=== PATIENT | female | born 1940 | race Caucasian/White ===

== ENCOUNTER → 2017-05-31 | Outpatient (CLI) | payer MEDICARE, MEDICAID ==
[~2017-05-31] MED LIST: AMLO5TAB PO; ASPIRIN 81MG TA81 MG PO; LIPITOR40 MG; LISINOPRIL40 MG PO; RANITIDINE HCL150 MG PO
[2017-05-31 09:35] LABS: BUN 10 mg/dL (7-18)
[2017-05-31 09:36] LABS: GFR (ESTIMATED) 97 ML/MIN (59-)
== END ==
LOC: LAB 07:02
PROVIDERS: Internal Medicine Adolescent Medicine
DX: E78.5 Hyperlipidemia, unspecified (principal)

== ENCOUNTER → 2017-06-09 | Outpatient (CLI) | payer MEDICARE, MEDICAID ==
--- NOTE | 2017-06-09 16:50 | RADIOLOGY REPORT PS360 ---
BONE DENSITOMETRY(HIP:LT SPINE HISTORY: POST MENOPAUSAL ORDERING PHYSICIAN: Fransisco Tomlin MD PATIENT AGE: 77 years COMPARISON: None FINDINGS: The BMD measured at the right femoral neck is 0.679 g/cm squared with a T score of -2.6. This is considered osteoporosis according to the World Health Organization criteria. Fracture risk is high. Treatment should be initiated not already prescribed. IMPRESSION: Osteoporosis with high fracture risk. Recommend bulb exam May 2018 to monitor response to treatment
== END ==
LOC: RAD 06-07 13:30
DX: Z78.0 Asymptomatic menopausal state (principal); Z13.820 Encounter for screening for osteoporosis